=== PATIENT | male | born 1930 | race Caucasian/White ===

== ENCOUNTER 2018-10-11 12:15 | Inpatient (IN) ==
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
[2018-10-11] MEDS ORDERED: Ipratropium/Albuterol Neb 3 ML IH ONE (12:28)
[2018-10-11 12:57] LABS: Basophils % 0.3 %; Eosinophils # 0.1 K/mcL (0.0-0.6); Eosinophils % 0.8 %; Hematocrit 22.8 % (37.5-50.1); Hemoglobin 7.2 g/dL (12.9-16.9); Immature Granulocytes % 0.4 % (0-4); Lymphocytes # 1.9 K/mcL (0.6-4.6); Lymphocytes % 25.2 %; Mean Corpuscular HGB Conc 31.6 g/dL (31.6-35.5); Mean Corpuscular Hemoglobin 26.5 pg (28.0-33.3); Mean Corpuscular Volume 83.8 fL (83.0-100.0); Mean Platelet Volume 10.2 fL (9.4-12.4); Monocytes # 0.6 K/mcL (0.0-1.3); Monocytes % 7.8 %; Platelet Count 141 K/mcL (140-400); Red Blood Count 2.72 M/mcL (4.19-5.50); Red Cell Distribution Width 18.1 % (11.5-14.5); Segmented Neutrophils % 65.5 %
[2018-10-11 13:05] LABS: INR 1.4; Prothrombin Time 15.7 Seconds (9.4-12.1)
[2018-10-11 13:07] LABS: Activated Partial Thrombo Time 35.1 Seconds (26.0-36.0)
[2018-10-11 13:12] LABS: Alanine Aminotransferase 5 Units/L (7-52); Albumin 3.1 g/dL (3.5-5.7); Albumin/Globulin Ratio 1.1 (1.1-2.2); Alkaline Phosphatase 79 Units/L (34-104); Aspartate Amino Transferase 7 Units/L (13-39); BUN/Creatinine Ratio 16 (6-26); Bilirubin,Direct 0.1 mg/dL (0.0-0.2); Bilirubin,Indirect 0.5 mg/dL (0.0-1.2); Bilirubin,Total 0.6 mg/dL (0.3-1.0); Blood Urea Nitrogen 59 mg/dL (8-23); Calcium 8.6 mg/dL (8.6-10.3); Carbon Dioxide 19 mEq/L (23-29); Chloride 108 mEq/L (98-107); Ethanol < 10 mg/dL (Less than 10); Globulin 2.8 g/dL (2.4-3.5); Glucose 81 mg/dL (70-105); Osmolality,Calculated 300 (280-300); Sodium 137 mEq/L (136-145); Total Protein 5.9 g/dL (6.4-8.9); eGFR For Non-African Americans 15 (> 60)
[2018-10-11 13:15] LABS: Troponin I < 0.03 ng/mL (< 0.04)
[2018-10-11 13:56] LABS: Bilirubin,Urine Negative (Negative); Blood,Urine Negative (Negative); Clarity,Urine Clear (Clear); Color,Urine Yellow (Yellow); Glucose,Urine (UA) Normal (Normal); Ketones,Urine Negative (Negative); Leukocyte Esterase,Urine Small (Negative); Nitrite,Urine Negative (Negative); PH,Urine 5.5 pH Units (5.0-8.0); Protein,Urine Negative (Neg-Trace); Urobilinogen,Urine Normal (Normal)
[2018-10-11] MEDS ORDERED: 0.9 % Sodium Chloride 500 ML IVC ONE ×2 (13:58→14:09)
[2018-10-11 14:02] LABS: Bacteria,Urine Few per hpf (None-Few); Mucus,Urine Few (Few); Squamous Epithelial Cell,Urine Few per lpf (None-Few)
[2018-10-11] MEDS ORDERED: Naloxone 0.4 MG/ML INJ IVP PRN (14:09)
[2018-10-11] MEDS ORDERED: Acetaminophen 325 MG TABLET PO PRN (14:09)
[2018-10-11] MEDS ORDERED: Mag Hydrox/Al Hydrox/Simeth 30 ML UDC PO PRN (14:09)
[2018-10-11] MEDS ORDERED: Ondansetron 4 MG/2 ML VIAL IVP PRN (14:09)
[2018-10-11] MEDS ORDERED: 0.9 % Sodium Chloride 1,000 ML IVC SCH (14:09)
[2018-10-11] MEDS ORDERED: *HR* HYDROcodone/Acet 5/325 mg TABLET PO PRN (14:09)
[2018-10-11] MEDS ORDERED: MOM Conc 10 ML UD.LIQ PO PRN (14:09)
[2018-10-11 14:13] LABS: Amphetamine Screen,Urine Negative ng/mL (Cutoff=1000); Barbiturate Screen,Urine Negative ng/mL (Cutoff=200); Benzodiazepines Screen,Urine Negative ng/mL (Cutoff=200); Cannabinoid Screen,Urine Negative ng/mL (Cutoff = 50); Cocaine Screen,Urine Negative ng/mL (Cutoff= 300); Opiate Screen,Urine Negative ng/mL (Cutoff=300); Phencyclidine Screen,Urine Negative ng/mL (Cutoff=25)
[2018-10-11] MEDS ORDERED: 0.9 % Sodium Chloride 250 ML ONE (15:44)
[2018-10-11 17:18] LABS: % Iron Saturation 6 % (20-55); Iron 15 mcg/dL (65-175); Transferrin 180 mg/dL (203-362)
[2018-10-11 17:37] LABS: Ferritin 120 ng/mL (20-250)
[2018-10-11 17:40] LABS: Folate 12.1 ng/mL (3.0-16.0)
[2018-10-11] MEDS: levETIRAcetam 250 MG TABLET PO SCH (20:47)
[2018-10-11] MEDS: amLODIPine 5 MG TABLET PO SCH (20:51)
[2018-10-11] MEDS: Metoprolol XL (24 HR) Succ 25 MG TAB.ER.24H PO SCH (20:52)
[2018-10-11] MEDS: Ranolazine 500 MG TAB.ER.12H PO SCH (20:52)
[2018-10-11] MEDS: Melatonin 3 MG TABLET PO SCH (20:54)
[2018-10-11] MEDS: Insulin DETEMIR 100 UNIT/ML X5UNITS SQ SCH (20:56)
[2018-10-11 22:25] LABS: Basophils % 0.2 %; Eosinophils # 0.1 K/mcL (0.0-0.6); Hematocrit 25.6 % (37.5-50.1); Hemoglobin 8.2 g/dL (12.9-16.9); Immature Granulocytes % 0.6 % (0-4); Lymphocytes % 24.4 %; Mean Corpuscular Hemoglobin 26.8 pg (28.0-33.3); Mean Corpuscular Volume 83.7 fL (83.0-100.0); Mean Platelet Volume 11.3 fL (9.4-12.4); Monocytes # 0.6 K/mcL (0.0-1.3); Monocytes % 7.4 %; Neutrophils # 5.5 K/mcL (1.6-8.9); Platelet Count 101 K/mcL (140-400); Red Blood Count 3.06 M/mcL (4.19-5.50); Red Cell Distribution Width 17.3 % (11.5-14.5); Segmented Neutrophils % 66.4 %
[2018-10-12 05:44] LABS: Calcium 8.6 mg/dL (8.6-10.3); Potassium 4.7 mEq/L (3.5-5.1)
[2018-10-12] MEDS: levETIRAcetam 250 MG TABLET PO SCH ×2 (08:23→21:21)
[2018-10-12] MEDS: Finasteride 5 MG TABLET PO SCH (08:24)
[2018-10-12] MEDS: Metoprolol XL (24 HR) Succ 25 MG TAB.ER.24H PO SCH ×2 (08:24→21:20)
[2018-10-12] MEDS: Ranolazine 500 MG TAB.ER.12H PO SCH ×2 (08:24→21:20)
[2018-10-12] MEDS: amLODIPine 5 MG TABLET PO SCH ×2 (08:24→21:21)
--- NOTE | 2018-10-12 10:13 | Internal Med History&Physical ---
Date of Encounter: 10/12/18 Time of Encounter: 09:50 Assessment and Plan (1) Anemia Current visit: Yes Status: Acute A transfusion of 1 unit packed red blood cells was ordered through emergency room. Anemia testing shows iron 15, transferrin saturation 6%, transferrin 180, ferritin 120, B12 731, and folate 12.1. IV Iron dextran will be ordered since he has been on oral iron supplementation without improvement. Qualifiers: Anemia type: unspecified type Qualified Code(s): D64.9 - Anemia, unspe cified (2) Thrombocytopenia Current visit: Yes Status: Acute Platelet count today 101 K. Continue to monitor. (3) Subdural hematoma Current visit: Yes Status: Acute Head CT shows continual diminution of size. (4) Atrial fibrillation Current visit: Yes Status: Chronic Presumed chronic. EKG will be done. Qualifiers: Atrial fibrillation type: chronic Qualified Code(s): I48.2 - Chronic atrial fibrillation (5) Renal failure Current visit: Yes Status: Acute IV fluids were started in emergency room. Renal indices will be monitored. Qualifiers: Renal failure chronicity: acute on chronic Acute renal failure type: unspecified Chronic kidney disease stage: stage 4 (severe) Qualified Code(s): N17.9 - Acute kidney failure, unspecified; N18.4 - Chronic kidney disease, stage 4 (severe) (6) Dementia Current visit: Yes Status: Acute MMSE will be ordered. Qualifiers: Dementia type: unspecified type Dementia behavioral disturbance: without behavioral disturbance Qualified Code(s): F03.90 - Unspecified dementia without behavioral disturbance Internal Medicine - H&P: HPI Chief complaint: Worsening anemia, confusion, renal failure Admitted From: Emergency Dept Plans for Post Hospital Care: Transfer [facility] History of present illness: Mr. Cleary is a 88 year old male who was sent from a local SNF to emergency room after morning labs showed hemoglobin decrease to 7.0. Hemoglobin had been 8.0 on October 02 and 9.0 on September 23. Azotemia was minimally improved with creatinine at 3.90 slightly decreased from 4.50 on October 02 but significantly higher than 1.78 on September 23. Staff reported him to be more confused. He was admitted to [facility] floor for ongoing care needs. He is a poor historian and cannot provide additional history at this time. Past Med Surg Social Fam HX - Past Medical History Medical history: atrial fibrillation, CHF, CVA, diabetes, hypertension, myocardial infarction, renal disease, seizures Additional medical history: subdural hematoma Psychiatric history: no psych history - Past Surgical History Surgical History: appendectomy, pacemaker Additional surgical history: brain surgery for subdural hematoma - Social History Smoking Status: Never smoker Smokeless Tobacco Status: No Alcohol use: none Drug use: none Internal Medicine - H&P: Meds Acetaminophen [Acetaminophen ER] 650 mg PO Q8H PRN 09/28/18 [History] Ascorbate Calcium [Calcium Ascorbate] 500 mg PO QAM 09/28/18 [History] Bisacodyl [Gentle Laxative] 10 mg RC PRN PRN 09/28/18 [History] Cyanocobalamin (Vitamin B-12) [Vitamin B-12] 1,000 mcg PO HS 09/28/18 [History] Ferrous Sulfate [Iron] 325 mg PO QAM 09/28/18 [History] Finasteride [Proscar] 5 mg PO DAILY 09/28/18 [History] Insulin Glargine,Hum.rec.anlog [Lantus Solostar] 10 unit SQ HS 09/28/18 [History] Lactobacillus Acidophilus [Acidophilus] 1 each PO BID 09/28/18 [History] LevETIRAcetam [Keppra] 500 mg PO BID 09/28/18 [History] Magnesium Hydroxide [Milk of Magnesia] 400 mg PO PRN PRN 09/28/18 [History] Melatonin 5 mg PO HS 09/28/18 [History] Metoprolol Succinate [Kapspargo Sprinkle] 12.5 mg PO BID 09/28/18 [History] Ranolazine [Ranexa] 500 mg PO BID 09/28/18 [History] Sennosides/Docusate Sodium [Senna-S Laxative Tablet] 1 each PO BID 09/28/18 [History] Tamsulosin [Flomax] 0.4 mg PO DAILY 09/28/18 [History] amLODIPine [Norvasc] 5 mg PO BID 09/28/18 [History] Bumetanide [Bumex] 0.5 mg PO 10/11/18 [History] Allergy/AdvReac Type Severity Reaction Status Date / Time No Known Allergies Allergy Verified 10/11/18 12:18 All Systems PM: A 10-system review of systems was performed and is negative for pertinent findings except as documented above in the HPI. Review of systems: Review of systems is obtained from available records. Gen.: He states his usual adult weight is 184. Cardiovascular: He has history of atrial fibrillation with slow ventricular response had a pacemaker placed over 20 years ago. He denies hypertension. He has history of heart failure and AR but the patient cannot recall details. He has denied DVT or pulmonary embolus. Respiratory: He is essentially a lifelong nonsmoker and denies chronic lung disease GI: Denies disorders of his liver gallbladder or exocrine pancreas : He has presumed BPH and is on Flomax and Proscar. He has had azotemia present on all labs since March 2016 with acute worsening as per history of present illness. There are no other known kidney bladder prostate disorders. Neurologic: He had a fall July 2018 resulting in subdural hematoma. He underwent craniotomy decompression at a [facility]. He developed seizures and was placed on Keppra. He has been at a local SNF since discharge. Endocrine: He has diagnoses of DM 2. Hemoglobin A1c was 7.4% on August 2018. He denies thyroid disease or hyperlipidemia Hematology/oncology: He reports skin cancer but denies internal malignancies. He has had anemia and has been on B12 and ferrous sulfate with ascorbic acid at the SNF. Psychiatric: He denies anxiety depression or other mental health diagnosis Musk skeletal: He denies arthritis gout or other bone joint or muscle disorders. - Constitutional Vitals: Temp Pulse Resp BP Pulse Ox 97.9 F 72 20 138/65 94 10/12/18 06:15 10/12/18 06:15 10/12/18 06:15 10/12/18 06:15 10/12/18 06:15 Exam: Gen.: He is a well-developed well-nourished male sitting comfortably in a chair at bedside at present time and appears in no acute distress HEENT: Head is atraumatic and normocephalic. Eyes: EOMI. There is no scleral icterus. Mouth: Mucosa is moist. Neck: Supple and nontender. There is no thyromegaly or adenopathy noted. Heart: Regular (pacer) without murmurs gallops or ectopics Lungs: No wheezes or crackles are heard. Abdomen: Soft and nontender. No masses or guarding are noted. Exam is limited because he is in the seated position. Extremities: There is no cyanosis. He has 1+ edema of the dorsum of feet and lower legs bilaterally. Dorsalis pedis and posttibial pulses are not palpable. Neurologic: Mental status: He is talkative and a fair historian. He does not remember many details of his history. Cranial nerves: Smile is symmetric. Forehead wrinkles bilaterally. Tongue protrudes midline. EOMI. Motor: There is no pronator drift. Cerebellar: Finger to nose is intact bilaterally. Skin: Warm and dry Internal Med - H&P Results - Labs CBC & Chem 7: 10/11/18 22:09 10/12/18 04:28 Labs: Short CBC 10/11/18 10/11/18 Range/Units 12:50 22:09 WBC 7.7 8.2 (4.3-11.1) K/mcL Hgb 7.2 L 8.2 L (12.9-16.9) g/dL Hct 22.8 L 25.6 L (37.5-50.1) % Plt Count 141 D 101 L (140-400) K/mcL Neutrophils # 5.0 5.5 (1.6-8.9) K/mcL BMP 10/11/18 10/12/18 12:50 04:28 Sodium 137 137 Potassium 5.0 4.7 Chloride 108 H 109 H Carbon Dioxide 19 L 19 L BUN 59 H 57 H Creatinine 3.79 H 3.67 H Glucose 81 84 Calcium 8.6 8.6 Cardiac Enzymes 10/11/18 Range/Units 12:50 Troponin I < 0.03 (< 0.04) ng/mL Liver Function 10/11/18 Range/Units 12:50 Total Bilirubin 0.6 (0.3-1.0) mg/dL Direct Bilirubin 0.1 (0.0-0.2) mg/dL AST 7 L (13-39) Units/L ALT 5 L (7-52) Units/L Alkaline Phosphatase 79 (34-104) Units/L Albumin 3.1 L (3.5-5.7) g/dL Urine 10/11/18 Range/Units 13:50 Urine Color Yellow (Yellow) Urine Clarity Clear (Clear) Urine pH 5.5 (5.0-8.0) pH Units Ur Specific Blairs 1.010 (1.010-1.025) Urine Protein Negative (Neg-Trace) mg/dL Urine Glucose (UA) Normal (Normal) mg/dL - Impressions ITS Impressions Chest X-Ray 10/11/18 12:26 IMPRESSION: Pulmonary vascular congestion and small left pleural effusion. Indeterminate 1.5 cm nodular density projecting over the anterior aspect of the right 2nd rib. It is uncertain if this represents a pulmonary nodule or lesion within the right 2nd rib. Consider CT of the chest for further evaluation. D/ / 10/11/2018 13:10:01 Gavino Aguilar MD / Danika Cm Interpreting Provider: Gavino Aguilar MD Head CT 10/11/18 12:26 IMPRESSION: 1. No acute intracranial hemorrhage or acute transcortical infarct. 2. Continued evolution of a thin right frontal subdural hematoma now measuring between 5 and 6 mm, previously measuring up to 8 mm on the prior study from 09/28/2018. Low-density within the subdural collection is most consistent with subacute to chronic blood products. 3. Redemonstration of mild to moderate white matter hypoattenuation, likely the sequela of chronic small vessel ischemia. If there is persistent clinical concern for acute ischemia, repeat noncontrast head CT in 6 hours would be the next best imaging modality given that the patient has a pacemaker and likely cannot undergo MRI imaging. D/ / Aki Guerrero / Aki Guerrero Interpreting Provider: Aki Guerrero
--- NOTE | 2018-10-12 15:35 | Electrocardiograph Report ---
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
[2018-10-12] MEDS ORDERED: IRON DEXTRAN COMPLEX IVPB ONE (16:30)
[2018-10-12] MEDS ORDERED: SODIUM CHLORIDE 0.9% IVPB ONE (16:30)
[2018-10-12] MEDS: Melatonin 3 MG TABLET PO SCH (21:21)
[2018-10-12] MEDS: Insulin DETEMIR 100 UNIT/ML X5UNITS SQ SCH (21:21)
[2018-10-13 05:40] LABS: Basophils % 0.2 %; Eosinophils # 0.1 K/mcL (0.0-0.6); Hematocrit 26.9 % (37.5-50.1); Hemoglobin 8.6 g/dL (12.9-16.9); Immature Granulocytes % 0.6 % (0-4); Lymphocytes # 1.8 K/mcL (0.6-4.6); Mean Corpuscular Hemoglobin 27.2 pg (28.0-33.3); Mean Corpuscular Volume 85.1 fL (83.0-100.0); Mean Platelet Volume 10.2 fL (9.4-12.4); Monocytes # 0.7 K/mcL (0.0-1.3); Monocytes % 7.8 %; Platelet Count 111 K/mcL (140-400); Red Blood Count 3.16 M/mcL (4.19-5.50); Red Cell Distribution Width 17.1 % (11.5-14.5); Segmented Neutrophils % 69.4 %
[2018-10-13 08:51] VITALS: BP 130/71
[2018-10-13] MEDS: Finasteride 5 MG TABLET PO SCH (08:51)
[2018-10-13] MEDS: levETIRAcetam 250 MG TABLET PO SCH (08:52)
[2018-10-13] MEDS: amLODIPine 5 MG TABLET PO SCH (08:52)
[2018-10-13] MEDS: Ranolazine 500 MG TAB.ER.12H PO SCH (08:52)
[2018-10-13] MEDS: Metoprolol XL (24 HR) Succ 25 MG TAB.ER.24H PO SCH (08:52)
--- NOTE | 2018-10-13 10:24 | Discharge Summary ---
Orders not resulted at time of discharge: Pending orders 10/11/18 12:50 MMA (VIT B12 STATUS) Routine 10/12/18 15:03 ECG 12 lead ECG [ECG] Routine Date of Encounter: 10/13/18 Time of Encounter: 10:16 - Discharge Diagnosis (1) Anemia Priority: Primary Status: Acute Qualifiers: Anemia type: unspecified type Qualified Code(s): D64.9 - Anemia, unspecified (2) Thrombocytopenia Priority: Secondary Status: Acute (3) Subdural hematoma Priority: Secondary Status: Chronic (4) Atrial fibrillation Priority: Secondary Status: Chronic Qualifiers: Atrial fibrillation type: chronic Qualified Code(s): I48.2 - Chronic atrial fibrillation (5) Renal failure Priority: Secondary Status: Acute Qualifiers: Renal failure chronicity: acute on chronic Acute renal failure type: unspecified Chronic kidney disease stage: stage 4 (severe) Qualified Code(s): N17.9 - Acute kidney failure, unspecified; N18.4 - Chronic kidney disease, stage 4 (severe) (6) Dementia Priority: Secondary Status: Chronic Qualifiers: Dementia type: unspecified type Dementia behavioral disturbance: without behavioral disturbance Qualified Code(s): F03.90 - Unspecified dementia without behavioral disturbance Hospital course: Mr. Cleary is a 88 year old male who was sent from a local SNF to emergency room after morning labs showed hemoglobin decrease to 7.0. Hemoglobin had been 8.0 on October 02 and 9.0 on September 23. Azotemia was minimally improved with creatinine at 3.90 slightly decreased from 4.50 on October 02 but significantly higher than 1.78 on September 23. Staff reported him to be more confused. He was admitted to [facility] floor for ongoing care needs. Initial orders written by the emergency room physician. I saw him on October 12 performed a history and physical. He was given 1 unit packed red blood cells. Iron dextran was ordered. Hemoglobin improved to 8.6 by day of discharge. Platelet count increased to 111 K by day of discharge. There were no new problems otherwise and on October 13 he was stable for discharge back to [facility] where he will follow with me. - Time Spent with Patient Total time spent providing and/or coordinating discharge services: - Discharge Medications Prescriptions: Continue Tamsulosin [Flomax] 0.4 mg PO DAILY Ranolazine [Ranexa] 500 mg PO BID Melatonin 5 mg PO HS Sennosides/Docusate Sodium [Senna-S Laxative Tablet] 1 each PO BID Metoprolol Succinate [Kapspargo Sprinkle] 12.5 mg PO BID Magnesium Hydroxide [Milk of Magnesia] 400 mg PO PRN PRN PRN Reason: Constipation Insulin Glargine,Hum.rec.anlog [Lantus Solostar] 10 unit SQ HS Finasteride [Proscar] 5 mg PO DAILY amLODIPine [Norvasc] 5 mg PO BID Acetaminophen [Acetaminophen ER] 650 mg PO Q8H PRN PRN Reason: Pain Bisacodyl [Gentle Laxative] 10 mg RC PRN PRN PRN Reason: Constipation Ascorbate Calcium [Calcium Ascorbate] 500 mg PO QAM LevETIRAcetam [Keppra] 500 mg PO BID Ferrous Sulfate [Iron] 325 mg PO QAM Cyanocobalamin (Vitamin B-12) [Vitamin B-12] 1,000 mcg PO HS Bumetanide [Bumex] 0.5 mg PO Discontinued Lactobacillus Acidophilus [Acidophilus] 1 each PO BID Home Medications: Acetaminophen [Acetaminophen ER] 650 mg PO Q8H PRN 09/28/18 [History] Ascorbate Calcium [Calcium Ascorbate] 500 mg PO QAM 09/28/18 [History] Bisacodyl [Gentle Laxative] 10 mg RC PRN PRN 09/28/18 [History] Cyanocobalamin (Vitamin B-12) [Vitamin B-12] 1,000 mcg PO HS 09/28/18 [History] Ferrous Sulfate [Iron] 325 mg PO QAM 09/28/18 [History] Finasteride [Proscar] 5 mg PO DAILY 09/28/18 [History] Insulin Glargine,Hum.rec.anlog [Lantus Solostar] 10 unit SQ HS 09/28/18 [History] LevETIRAcetam [Keppra] 500 mg PO BID 09/28/18 [History] Magnesium Hydroxide [Milk of Magnesia] 400 mg PO PRN PRN 09/28/18 [History] Melatonin 5 mg PO HS 09/28/18 [History] Metoprolol Succinate [Kapspargo Sprinkle] 12.5 mg PO BID 09/28/18 [History] Ranolazine [Ranexa] 500 mg PO BID 09/28/18 [History] Sennosides/Docusate Sodium [Senna-S Laxative Tablet] 1 each PO BID 09/28/18 [History] Tamsulosin [Flomax] 0.4 mg PO DAILY 09/28/18 [History] amLODIPine [Norvasc] 5 mg PO BID 09/28/18 [History] Bumetanide [Bumex] 0.5 mg PO 10/11/18 [History] Allergies/Adverse Reactions: Allergy/AdvReac Type Severity Reaction Status Date / Time No Known Allergies Allergy Verified 10/11/18 12:18 Date of admission: 10/12/18 14:29 Primary care physician: Curtis Dhaliwal MD - Constitutional Vitals: Temp Pulse Resp BP Pulse Ox 98.2 F 70 16 130/71 94 10/13/18 06:26 10/13/18 08:50 10/13/18 06:26 10/13/18 08:50 10/13/18 08:50 - Patient Status Disposition: Transfer SNF Condition: Fair - Discharge Instructions Follow Up With: Curtis Dhaliwal MD [Primary Care Provider] - 1 week - Diet and Activity Activity: resume usual activities as tolerated Diet: advance to your usual diet
--- NOTE | 2018-10-13 10:29 | Physician Discharge Referral ---
ExtendedCare Referral Info Transfer To: [facility] Provider in Charge: Isra Provider in Charge after Transfer: PCP (Isra) - Diagnosis (1) Anemia Priority: Primary Status: Acute (2) Thrombocytopenia Priority: Secondary Status: Acute (3) Subdural hematoma Priority: Secondary Status: Chronic (4) Atrial fibrillation Priority: Secondary Status: Chronic (5) Renal failure Priority: Secondary Status: Acute (6) Dementia Priority: Secondary Status: Chronic Prognosis: Fair Aware of Diagnosis: Family Aware of Prognosis: Family - Transfer Medications Home Medications: Acetaminophen [Acetaminophen ER] 650 mg PO Q8H PRN 09/28/18 [History] Ascorbate Calcium [Calcium Ascorbate] 500 mg PO QAM 09/28/18 [History] Bisacodyl [Gentle Laxative] 10 mg RC PRN PRN 09/28/18 [History] Cyanocobalamin (Vitamin B-12) [Vitamin B-12] 1,000 mcg PO HS 09/28/18 [History] Ferrous Sulfate [Iron] 325 mg PO QAM 09/28/18 [History] Finasteride [Proscar] 5 mg PO DAILY 09/28/18 [History] Insulin Glargine,Hum.rec.anlog [Lantus Solostar] 10 unit SQ HS 09/28/18 [History] LevETIRAcetam [Keppra] 500 mg PO BID 09/28/18 [History] Magnesium Hydroxide [Milk of Magnesia] 400 mg PO PRN PRN 09/28/18 [History] Melatonin 5 mg PO HS 09/28/18 [History] Metoprolol Succinate [Kapspargo Sprinkle] 12.5 mg PO BID 09/28/18 [History] Ranolazine [Ranexa] 500 mg PO BID 09/28/18 [History] Sennosides/Docusate Sodium [Senna-S Laxative Tablet] 1 each PO BID 09/28/18 [History] Tamsulosin [Flomax] 0.4 mg PO DAILY 09/28/18 [History] amLODIPine [Norvasc] 5 mg PO BID 09/28/18 [History] Bumetanide [Bumex] 0.5 mg PO 10/11/18 [History] Allergies/Adverse Reactions: Allergy/AdvReac Type Severity Reaction Status Date / Time No Known Allergies Allergy Verified 10/11/18 12:18 - Respiratory Orders Smoking Cessation: Smoking cessation has been advised. For more information, call the [place] Tobacco Quit Line at 6-776-WXGA-NOW. - Lab Orders Lab Orders: Other (include drug levels w/frequency) (CBC with differential, BMP in 3 days) - Advance Directives Code Status: DNR-Arrest - Mobility Orders Ambulate (With assistance) - Rehabiliation Orders Rehab Potential: Fair CERTIFICATION: I certify that the transfer of the above named patient to an Extended Care Facility is necessary for the continuing treatment of the diagnosis listed. The above information is true and accurate reflection of patient's current condition. Confidential - Redisclosure prohibited without a patient's written consent.
--- NOTE | 2018-10-14 09:35 | Electrocardiograph Report ---
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
== END 2018-10-13 12:44 | DRG 812 ==
LOC: INPPIK 12:15 → EMEROOPIK 12:15 → INPPIK 14:35
PROVIDERS: ADMIT Internal Medicine; ATTEND Internal Medicine

== ENCOUNTER 2018-10-19 21:24 | Observation (INO) ==
[2018-10-19] MEDS ORDERED: cefTRIAXone 2,000 MG in Water for inj. (sterile) 20 ML 20 ML IVP ONE (21:28)
[2018-10-19] MEDS ORDERED: 0.9 % Sodium Chloride 250 ML IVC ONE (21:28)
--- NOTE | 2018-10-19 21:29 | Emergency Department Note ---
Disposition Clinical Impression: Hyperkalemia, Generalized weakness Renal failure Qualifiers: Renal failure chronicity: acute Acute renal failure type: unspecified Qualified Code(s): N17.9 - Acute kidney failure, unspecified Anemia Qualifiers: Anemia type: unspecified type Qualified Code(s): D64.9 - Anemia, unspecified Disposition: Admitted As Inpatient Condition: Fair General Adult HPI - General Chief complaint: ED General Medical Stated complaint: ABNORMAL LABS Time Seen by Provider: 10/19/18 21:26 Source: patient, EMS Mode of arrival: EMS Limitations: no limitations Nursing Notes Reviewed: Yes Vital Signs Reviewed: Yes - History of Present Illness HPI Narrative: Patient has had has decline in his status over the past couple weeks. His been number of evaluations and lab tests. Today he was shown to have a potassium of 6 a hemoglobin of 7 and acute renal failure. Patient also had urinary retention with UTI and over 2-1/2 L of urine decompressed upon placement of a Shook catheter. This has been communicated to Dr. Dhaliwal who desired the patient come to the emergency department to coordinate inpatient observation and stabilization. He is DNR CCA status but Dr. Dhaliwal believes that with transfusion, IV fluids and continued bladder decompression with a Shook catheter that his symptoms will improve and he can be observed at this facility. Patient has been brought in by EMS and they noted a respiratory rate of 16, blood pressure 128/53, heart rate of 69, temperature 98.6 and a saturation 95% on room air. He is alert and conversive on arrival and states he is "feeling alright". He denies any pain, chest pain, shortness of breath, nausea, vomiting or diarrhea. He believes he has "not eaten too well" and that is because "I did not like what they had". The patient has no other complaints. Before his pre sentation I did talk to Dr. Dhaliwal. He desired we obtain blood cultures, lactic acid repeated basic labs. He recommended we continue the Shook to gravity, administer one dose of Kayexalate, Rocephin for his urinary tract infection and saline at 50 mL per hour. He planned on observation with repeat laboratory in the morning. Onset (ago): week(s) - Related Data Home Medications Medication Instructions Recorded Confirmed Acetaminophen [Acetaminophen ER] 650 mg PO Q8H PRN 09/28/18 10/19/18 Ascorbate Calcium [Calcium 500 mg PO QAM 09/28/18 10/19/18 Ascorbate] Bisacodyl [Gentle Laxative] 10 mg RC PRN PRN 09/28/18 10/19/18 Cyanocobalamin (Vitamin B-12) 1,000 mcg PO HS 09/28/18 10/19/18 [Vitamin B-12] Ferrous Sulfate [Iron] 325 mg PO QAM 09/28/18 10/19/18 Finasteride [Proscar] 5 mg PO DAILY 09/28/18 10/19/18 Insulin Glargine,Hum.rec.anlog 10 unit SQ HS 09/28/18 10/19/18 [Lantus Solostar] LevETIRAcetam [Keppra] 500 mg PO BID 09/28/18 10/19/18 Magnesium Hydroxide [Milk of 400 mg PO PRN PRN 09/28/18 10/19/18 Magnesia] Melatonin 5 mg PO HS 09/28/18 10/19/18 Metoprolol Succinate [Kapspargo 12.5 mg PO BID 09/28/18 10/19/18 Sprinkle] Ranolazine [Ranexa] 500 mg PO BID 09/28/18 10/19/18 Sennosides/Docusate Sodium 1 each PO BID 09/28/18 10/19/18 [Senna-S Laxative Tablet] Tamsulosin [Flomax] 0.4 mg PO DAILY 09/28/18 10/19/18 amLODIPine [Norvasc] 5 mg PO BID 09/28/18 10/19/18 Bumetanide [Bumex] 0.5 mg PO DAILY 10/11/18 10/19/18 Allergies Allergy/AdvReac Type Severity Reaction Status Date / Time No Known Allergies Allergy Verified 10/19/18 21:28 All systems ED: reviewed and negative except as stated. Past Medical History - Past Medical History Attestation: Yes The following information was validated with the patient. Source: patient, old records reviewed, obtained from family, nursing notes reviewed Medical history: Reports: atrial fibrillation, CHF, CVA, diabetes, hypertension, myocardial infarction, renal disease, seizures Surgical history: Reports: appendectomy, pacemaker Psychiatric history: Reports: no psych history - Social History Smoking Status: Never smoker Smokeless Tobacco Status: No Alcohol use: Reports: none Drug use: Reports: none Physical Exam - General Limitations: age General appearance: alert, in no apparent distress - Head Head exam: atraumatic, normocephalic, normal inspection - Eye Eye exam: Present: normal appearance, PERRL, EOMI. Absent: conjunctival injection - ENT ENT exam: normal exam, normal oropharynx, mucous membranes moist - Neck Neck exam: Present: normal inspection, full ROM, trachea midline - Chest Chest inspection: Present: normal inspection, symmetric chest wall rise - Respiratory Respiratory exam: Present: normal lung sounds bilaterally. Absent: respiratory distress, wheezes, prolonged expiratory phase - Cardiovascular Cardiovascular exam: Present: regular rate, normal rhythm, normal heart sounds. Absent: tachycardia - Abdominal Exam Abdominal exam: Present: soft, Non-Tender, normal bowel sounds. Absent: tenderness, distention, guarding, rebound, rigidity - Extremities Exam Extremities exam: Present: normal inspection, full ROM, normal capillary refill. Absent: tenderness, pedal edema, calf tenderness - Expanded Lower Extremity Exam Neurovascular/Tendon exam: Present: normal capillary refill. Absent: motor deficit, sensory deficit, tendon deficit Gait: not tested/not observed - Neurological Exam Neurological exam: Present: alert, CN II-XII intact. Absent: motor sensory deficit - Psychiatric Psychiatric exam: Present: normal affect, normal mood. Absent: agitated, anxi ous - Skin Skin exam: Present: warm, dry, intact, normal color. Absent: rash, diaphoresis, pallor Course Course Narrative: Patient's laboratory has been reviewed and reviewed with Dr. Dhaliwal. With his low hemoglobin the plan was for type and screen. With return hemoglobin of 6.4 Dr. Dhaliwal did not desire type and cross and transfusion of 1 unit area potassium was down to 5.4 and remains of significant renal insufficiency. He will continue with careful IV fluids, observation and repeat laboratory in the morning. Rocephin has been started and continued. Discussed care with Dr. Dhaliwal before the patient's arrival as well as after return of testing. Verbal orders have been obtained for the patient's observation. Vital Signs Temperature 98.2 F 10/19/18 21:26 Pulse Rate 79 10/19/18 21:26 Respiratory Rate 24 10/19/18 21:26 Blood Pressure 147/90 10/19/18 21:26 O2 Sat by Pulse Oximetry 97 10/19/18 21:26 Temperature 97.7 F 10/20/18 00:20 Pulse Rate 73 10/20/18 00:20 Respiratory Rate 16 10/20/18 00:20 Blood Pressure 116/69 10/20/18 00:20 O2 Sat by Pulse Oximetry 95 10/20/18 00:27 Oxygen Delivery Oxygen Delivery Room Air Medical Decision Making - Medical Records Medical records reviewed: Yes I reviewed the patient's medical records. - Lab Data Lab results reviewed: Yes I reviewed the patient's lab results. Result diagrams: 10/19/18 21:45 10/19/18 21:45 Lab Results 10/19/18 10/19/18 10/19/18 Range/Units 21:45 21:45 21:45 WBC 7.1 (4.3-11.1) K/mcL RBC 2.32 L (4.19-5.50) M/mcL Hgb 6.4 L (12.9-16.9) g/dL Hct 20.5 L (37.5-50.1) % MCV 88.4 (83.0-100.0) fL MCH 27.6 L (28.0-33.3) pg MCHC 31.2 L (31.6-35.5) g/dL RDW 17.8 H (11.5-14.5) % Plt Count 181 (140-400) K/mcL MPV 9.9 (9.4-12.4) fL Immature Gran % 0.4 (0-4) % Seg Neutrophils % 70.9 % Lymphocytes % 20.2 % Monocytes % 8.3 % Eosinophils % 0.1 % Basophils % 0.1 % Neutrophils # 5.1 (1.6-8.9) K/mcL Lymphocytes # 1.4 (0.6-4.6) K/mcL Monocytes # 0.6 (0.0-1.3) K/mcL Eosinophils # 0.0 (0.0-0.6) K/mcL Basophils # 0.0 (0.0-0.2) K/mcL Sodium 134 L (136-145) mEq/L Potassium 5.4 H (3.5-5.1) mEq/L Chloride 105 (98-107) mEq/L Carbon Dioxide 20 L (23-29) mEq/L BUN 54 H (8-23) mg/dL Creatinine 3.13 H (0.70-1.30) mg/dL Est GFR ( Amer) 23 L (> 60) Est GFR (Non-Af Amer) 19 L (> 60) BUN/Creatinine Ratio 17 (6-26) Glucose 265 H (70-105) mg/dL Calculated Osmolality 302 H (280-300) Lactic Acid 1.9 (0.5-2.2) mmol/L Calcium 8.3 L (8.6-10.3) mg/dL Blood Type Antibody Screen Crossmatch 10/19/18 Range/Units 21:45 WBC (4.3-11.1) K/mcL RBC (4.19-5.50) M/mcL Hgb (12.9-16.9) g/dL Hct (37.5-50.1) % MCV (83.0-100.0) fL MCH (28.0-33.3) pg MCHC (31.6-35.5) g/dL RDW (11.5-14.5) % Plt Count (140-400) K/mcL MPV (9.4-12.4) fL Immature Gran % (0-4) % Seg Neutrophils % % Lymphocytes % % Monocytes % % Eosinophils % % Basophils % % Neutrophils # (1.6-8.9) K/mcL Lymphocytes # (0.6-4.6) K/mcL Monocytes # (0.0-1.3) K/mcL Eosinophils # (0.0-0.6) K/mcL Basophils # (0.0-0.2) K/mcL Sodium (136-145) mEq/L Potassium (3.5-5.1) mEq/L Chloride (98-107) mEq/L Carbon Dioxide (23-29) mEq/L BUN (8-23) mg/dL Creatinine (0.70-1.30) mg/dL Est GFR ( Amer) (> 60) Est GFR (Non-Af Amer) (> 60) BUN/Creatinine Ratio (6-26) Glucose (70-105) mg/dL Calculated Osmolality (280-300) Lactic Acid (0.5-2.2) mmol/L Calcium (8.6-10.3) mg/dL Blood Type A POSITIVE Antibody Screen NEGATIVE Crossmatch See Detail
[2018-10-19] MEDS ORDERED: 0.9 % Sodium Chloride 1,000 ML IVC SCH ×2 (21:30→23:53)
[2018-10-19 21:55] LABS: Basophils % 0.1 %; Eosinophils % 0.1 %; Hematocrit 20.5 % (37.5-50.1); Hemoglobin 6.4 g/dL (12.9-16.9); Immature Granulocytes % 0.4 % (0-4); Lymphocytes # 1.4 K/mcL (0.6-4.6); Lymphocytes % 20.2 %; Mean Corpuscular HGB Conc 31.2 g/dL (31.6-35.5); Mean Corpuscular Hemoglobin 27.6 pg (28.0-33.3); Mean Corpuscular Volume 88.4 fL (83.0-100.0); Mean Platelet Volume 9.9 fL (9.4-12.4); Monocytes # 0.6 K/mcL (0.0-1.3); Monocytes % 8.3 %; Neutrophils # 5.1 K/mcL (1.6-8.9); Platelet Count 181 K/mcL (140-400); Red Blood Count 2.32 M/mcL (4.19-5.50); Red Cell Distribution Width 17.8 % (11.5-14.5); Segmented Neutrophils % 70.9 %
[2018-10-19 22:14] LABS: Calcium 8.3 mg/dL (8.6-10.3); Potassium 5.4 mEq/L (3.5-5.1)
[2018-10-19] MEDS ORDERED: Ondansetron 4 MG/2 ML VIAL IVP PRN (23:53)
[2018-10-19] MEDS ORDERED: Bisacodyl 10 MG RECTAL SUPPOSITORY RC PRN (23:53)
[2018-10-19] MEDS ORDERED: D5% in Water 1,000 ML IVC PRN (23:53)
[2018-10-19] MEDS ORDERED: Mag Hydrox/Al Hydrox/Simeth 30 ML UDC PO PRN (23:53)
[2018-10-19] MEDS ORDERED: Dextrose Gel 15 GM/37.5 ML TUBE PO PRN ×2 (23:53)
[2018-10-19] MEDS ORDERED: Naloxone 0.4 MG/ML INJ IVP PRN (23:53)
[2018-10-19] MEDS ORDERED: *HR* Dextrose 50 % in Water (Vial) 50 ML VIAL IVP PRN (23:53)
[2018-10-19] MEDS ORDERED: MOM Conc 10 ML UD.LIQ PO PRN (23:53)
[2018-10-20] MEDS ORDERED: 0.9 % Sodium Chloride 250 ML ONE (00:17)
[2018-10-20 06:56] LABS: Basophils % 0.1 %; Eosinophils % 0.3 %; Hematocrit 25.9 % (37.5-50.1); Hemoglobin 8.2 g/dL (12.9-16.9); Immature Granulocytes % 0.9 % (0-4); Lymphocytes # 1.4 K/mcL (0.6-4.6); Lymphocytes % 18.5 %; Mean Corpuscular HGB Conc 31.7 g/dL (31.6-35.5); Mean Corpuscular Volume 88.4 fL (83.0-100.0); Mean Platelet Volume 10.9 fL (9.4-12.4); Monocytes # 0.6 K/mcL (0.0-1.3); Monocytes % 7.9 %; Neutrophils # 5.5 K/mcL (1.6-8.9); Platelet Count 147 K/mcL (140-400); Red Blood Count 2.93 M/mcL (4.19-5.50); Red Cell Distribution Width 17.2 % (11.5-14.5); Segmented Neutrophils % 72.3 %
[2018-10-20 07:20] LABS: Calcium 8.5 mg/dL (8.6-10.3); Potassium 4.3 mEq/L (3.5-5.1)
[2018-10-20] MEDS: Insulin LISPRO 300 UNITS/3 ML VIAL SQ SCH ×2 (07:38→12:11)
[2018-10-20] MEDS: Finasteride 5 MG TABLET PO SCH ×2 (08:38→09:00)
[2018-10-20] MEDS: Ranolazine 500 MG TAB.ER.12H PO SCH ×2 (08:38→09:00)
[2018-10-20] MEDS: Sennosides/Docusate Sodium TABLET PO SCH ×2 (08:38→09:00)
[2018-10-20] MEDS: amLODIPine 5 MG TABLET PO SCH ×2 (08:39→09:00)
[2018-10-20] MEDS: Bumetanide 1 MG TABLET PO SCH ×2 (08:39→08:59)
[2018-10-20] MEDS: levETIRAcetam 250 MG TABLET PO SCH ×2 (08:39→08:59)
[2018-10-20] MEDS ORDERED: MOM Conc 10 ML UD.LIQ PO PRN (09:00)
[2018-10-20 11:00] VITALS: BP 163/70
--- NOTE | 2018-10-20 11:29 | Internal Med History&Physical ---
Date of Encounter: 10/20/18 Time of Encounter: 11:00 Assessment and Plan (1) Anemia Current visit: Yes Status: Acute He was transfused 1 unit packed red blood cells and hemoglobin has improved to 8.2 today. Qualifiers: Anemia type: unspecified type Qualified Code(s): D64.9 - Anemia, unspecified (2) Urinary retention Current visit: Yes Status: Acute Shook catheter remains in place. (3) Hyperkalemia Current visit: Yes Status: Acute He was given Kayexalate in emergency room. Potassium level is decreased to 4.3. (4) Atrial fibrillation Current visit: No Status: Chronic He is not on anticoagulation or antiplatelet medication because of blood loss. Qualifiers: Atrial fibrillation type: chronic Qualified Code(s): I48.2 - Chronic atrial fibrillation (5) Dementia Current visit: No Status: Chronic Clinically advanced stage. Qualifiers: Dementia type: unspecified type Dementia behavioral disturbance: without behavioral disturbance Qualified Code(s): F03.90 - Unspecified dementia without behavioral disturbance (6) Renal failure Current visit: Yes Status: Acute Shook catheter remains in place. Renal function shows improvement with creatinine decreased to 2.79 today. Qualifiers: Renal failure chronicity: acute on chronic Acute renal failure type: unspecified Chronic kidney disease stage: stage 4 (severe) Qualified Code(s): N17.9 - Acute kidney failure, unspecified; N18.4 - Chronic kidney disease, stage 4 (severe) Internal Medicine - H&P: HPI Chief complaint: Urinary retention, anemia Admitted From: Emergency Dept Plans for Post Hospital Care: Transfer [facility] History of present illness: Mr. Cleary is a 88 year old male who was sent to emergency room for further evaluation after urinary retention, hyperkalemia, and worsening anemia were documented at the SNF. Shook catheter insertion at the alf resulted in approximately 2500 mL urine output. Hemoglobin had decreased to 6.4 on evaluation in emergency room. He was admitted to [facility] floor for ongoing care needs. He was hospitalized at [facility] approximately one week ago with anemia. He received iron dextran infusion and 1 unit packed red blood cells. Stool was documented heme positive 2 at the alf. EGD and colonoscopy were done several months ago to [facility]. No intervention was done. There is no known disorders of his liver gallbladder or exocrine pancreas. Past Med Surg Social Fam HX - Past Medical History Medical history: atrial fibrillation, CHF, CVA, diabetes, hypertension, myocardial infarction, renal disease, seizures Additional medical history: subdural hematoma, STAGE 4 KIDNEY DZ, TYPE 2 DM, ANEMIA, BEHAVIORAL ISSUES, PASSED HX OF BLOOD TRANSFUSIONS. Psychiatric history: no psych history - Past Surgical History Surgical History: appendectomy, pacemaker Additional surgical history: brain surgery for subdural hematoma, PACEMAKER, - Social History Smoking Status: Never smoker Smokeless Tobacco Status: No Alcohol use: none Drug use: none Internal Medicine - H&P: Meds Acetaminophen [Acetaminophen ER] 650 mg PO Q8H PRN 09/28/18 [History] Ascorbate Calcium [Calcium Ascorbate] 500 mg PO QAM 09/28/18 [History] Bisacodyl [Gentle Laxative] 10 mg RC PRN PRN 09/28/18 [History] Cyanocobalamin (Vitamin B-12) [Vitamin B-12] 1,000 mcg PO HS 09/28/18 [History] Ferrous Sulfate [Iron] 325 mg PO QAM 09/28/18 [History] Finasteride [Proscar] 5 mg PO DAILY 09/28/18 [History] Insulin Glargine,Hum.rec.anlog [Lantus Solostar] 10 unit SQ HS 09/28/18 [History] LevETIRAcetam [Keppra] 500 mg PO BID 09/28/18 [History] Magnesium Hydroxide [Milk of Magnesia] 400 mg PO PRN PRN 09/28/18 [History] Melatonin 5 mg PO HS 09/28/18 [History] Metoprolol Succinate [Kapspargo Sprinkle] 12.5 mg PO BID 09/28/18 [History] Ranolazine [Ranexa] 500 mg PO BID 09/28/18 [History] Sennosides/Docusate Sodium [Senna-S Laxative Tablet] 1 each PO BID 09/28/18 [History] Tamsulosin [Flomax] 0.4 mg PO DAILY 09/28/18 [History] amLODIPine [Norvasc] 5 mg PO BID 09/28/18 [History] Bumetanide [Bumex] 0.5 mg PO DAILY 10/11/18 [History] Allergy/AdvReac Type Severity Reaction Status Date / Time No Known Allergies Allergy Verified 10/19/18 21:28 All Systems PM: A 10-system review of systems was performed and is negative for pertinent findings except as documented above in the HPI. Review of systems: Review of systems from his recent [facility] hospitalization were reviewed and revised as below. Gen.: He states his usual adult weight is 184. Cardiovascular: He has history of atrial fibrillation with slow ventricular response had a pacemaker placed over 20 years ago. He denies hypertension. He has history of heart failure and [place] but the patient cannot recall details. He has denied DVT or pulmonary embolus. Respiratory: He is essentially a lifelong nonsmoker and denies chronic lung disease GI: As per history of present illness : He has presumed BPH and is on Flomax and Proscar. He has had azotemia present on all labs since March 2016 with acute worsening in the past few weeks. He had urinary retention requiring Shook catheter insertion yesterday as per history of present illness. Neurologic: He had a fall July 2018 resulting in subdural hematoma. He underwent craniotomy decompression at a [facility]. He developed seizur es and was placed on Keppra. He has been at a local SNF since discharge. Endocrine: He has diagnoses of DM 2. Hemoglobin A1c was 7.4% on August 2018. He denies thyroid disease or hyperlipidemia Hematology/oncology: He reports skin cancer but denies internal malignancies. He has had anemia and has been on B12 and ferrous sulfate with ascorbic acid at the SNF. Psychiatric: He denies anxiety depression or other mental health diagnosis Musk skeletal: He denies arthritis gout or other bone joint or muscle disorders. - Constitutional Vitals: Temp Pulse Resp BP Pulse Ox 98.4 F 70 16 163/70 96 10/20/18 10:51 10/20/18 10:51 10/20/18 10:51 10/20/18 10:51 10/20/18 10:51 Exam: Gen.: He is a well-developed well-nourished male resting comfortably in bed who appears in no acute distress. He denies pain or dyspnea. HEENT: Head is atraumatic and normocephalic. Eyes: EOMI. There is no scleral icterus. Mouth: Mucosa is moist. Neck: Supple and nontender. There is no thyromegaly or adenopathy. Heart: Regular (pacer) without murmurs gallops or ectopics. Lungs: No wheezing or crackles are heard. He has egophony in the posterior left base. Abdomen: Soft and nontender. No masses or guarding are noted. Extremities: He has 1-2+ edema of the dorsum of feet and lower legs bilaterally. Dorsalis pedis and posterior tibial pulses are nonpalpable. 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 Neurologic: Mental status: He is able to answer questions but is a fair to poor historian. He knows his age but not his location or length of stay. Cranial nerves: Smile is symmetric. Forehead wrinkles bilaterally. Tongue protrudes midline. EOMI. Motor: There is no pronator drift. Cerebellar: Finger to nose is intact bilaterally. Skin: Warm and dry Internal Med - H&P Results - Labs CBC & Chem 7: 10/20/18 06:08 10/20/18 06:08 Labs: Short CBC 10/19/18 10/20/18 Range/Units 21:45 06:08 WBC 7.1 7.6 (4.3-11.1) K/mcL Hgb 6.4 L 8.2 L D (12.9-16.9) g/dL Hct 20.5 L 25.9 L (37.5-50.1) % Plt Count 181 147 (140-400) K/mcL Neutrophils # 5.1 5.5 (1.6-8.9) K/mcL BMP 10/19/18 10/20/18 21:45 06:08 Sodium 134 L 138 Potassium 5.4 H 4.3 Chloride 105 108 H Carbon Dioxide 20 L 21 L BUN 54 H 48 H Creatinine 3.13 H 2.79 H Glucose 265 H 115 H Calcium 8.3 L 8.5 L
--- NOTE | 2018-10-20 11:57 | Discharge Summary ---
Orders not resulted at time of discharge: Pending orders 10/19/18 21:56 Culture,Blood [BC] Stat Date of Encounter: 10/20/18 Time of Encounter: 11:00 - Discharge Diagnosis (1) Anemia Priority: Primary Status: Acute Qualifiers: Anemia type: unspecified type Qualified Code(s): D64.9 - Anemia, unspecified (2) Urinary retention Priority: Secondary Status: Acute (3) Hyperkalemia Priority: Secondary Status: Resolved (4) Atrial fibrillation Priority: Secondary Status: Chronic Qualifiers: Atrial fibrillation type: chronic Qualified Code(s): I48.2 - Chronic atrial fibrillation (5) Dementia Priority: Secondary Status: Chronic Qualifiers: Dementia type: unspecified type Dementia behavioral disturbance: without behavioral disturbance Qualified Code(s): F03.90 - Unspecified dementia without behavioral disturbance (6) Renal failure Priority: Secondary Status: Acute Qualifiers: Renal failure chronicity: acute on chronic Acute renal failure type: unspecified Chronic kidney disease stage: stage 4 (severe) Qualified Code(s): N17.9 - Acute kidney failure, unspecified; N18.4 - Chronic kidney disease, stage 4 (severe) Hospital course: Mr. Cleary is a 88 year old male who was sent to emergency room for further evaluation after urinary retention, hyperkalemia, and worsening anemia were documented at the SNF. Shook catheter insertion at the skilled nursing resulted in approximately 2500 mL urine output. Hemoglobin had decreased to 6.4 on evaluation in emergency room. He was admitted to [facility] for ongoing care needs. Initial orders were written by the emergency room physician. I saw him on October 20 and performed a history physical and discharge. He received one unit packed red blood cells transfusion. Hemoglobin improved to 8.2 by the following day. I had a long discussion with his family about transferring him for additional aggressive intervention with EGD +/- colonoscopy. They elected to pursue a nonaggressive plan of care. 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 The Shook catheter will remain in place. Proscar will be continued. Flomax will be discontinued and Cardura started for BPH and blood pressure control. Amlodipine will be discontinued. No further labs will be drawn at the skilled nursing. He will not return to the hospital. He will follow with me at the SNF. - Time Spent with Patient Total time spent providing and/or coordinating discharge services: - Discharge Medications Prescriptions: New Ascorbic Acid [C-500] 500 mg PO DAILY 365 Days tablet Doxazosin Mesylate [Cardura] 2 mg PO HS 365 Days tablet MOM Conc [MILK OF MAGNESIA conc] 10 ml PO DAILY PRN [id number] PRN Reason: Constipation Continue Ranolazine [Ranexa] 500 mg PO BID Melatonin 5 mg PO HS Sennosides/Docusate Sodium [Senna-S Laxative Tablet] 1 each PO BID Metoprolol Succinate [Kapspargo Sprinkle] 12.5 mg PO BID Magnesium Hydroxide [Milk of Magnesia] 400 mg PO PRN PRN PRN Reason: Constipation Insulin Glargine,Hum.rec.anlog [Lantus Solostar] 10 unit SQ HS Finasteride [Proscar] 5 mg PO DAILY Acetaminophen [Acetaminophen ER] 650 mg PO Q8H PRN PRN Reason: Pain Bisacodyl [Gentle Laxative] 10 mg RC PRN PRN PRN Reason: Constipation LevETIRAcetam [Keppra] 500 mg PO BID Ferrous Sulfate [Iron] 325 mg PO QAM Cyanocobalamin (Vitamin B-12) [Vitamin B-12] 1,000 mcg PO HS Bumetanide [Bumex] 0.5 mg PO DAILY Discontinued Tamsulosin [Flomax] 0.4 mg PO DAILY amLODIPine [Norvasc] 5 mg PO BID Ascorbate Calcium [Calcium Ascorbate] 500 mg PO QAM Home Medications: Acetaminophen [Acetaminophen ER] 650 mg PO Q8H PRN 09/28/18 [History] Bisacodyl [Gentle Laxative] 10 mg RC PRN PRN 09/28/18 [History] Cyanocobalamin (Vitamin B-12) [Vitamin B-12] 1,000 mcg PO HS 09/28/18 [History] Ferrous Sulfate [Iron] 325 mg PO QAM 09/28/18 [History] Finasteride [Proscar] 5 mg PO DAILY 09/28/18 [History] Insulin Glargine,Hum.rec.anlog [Lantus Solostar] 10 unit SQ HS 09/28/18 [History] LevETIRAcetam [Keppra] 500 mg PO BID 09/28/18 [History] Magnesium Hydroxide [Milk of Magnesia] 400 mg PO PRN PRN 09/28/18 [History] Melatonin 5 mg PO HS 09/28/18 [History] Metoprolol Succinate [Kapspargo Sprinkle] 12.5 mg PO BID 09/28/18 [History] Ranolazine [Ranexa] 500 mg PO BID 09/28/18 [History] Sennosides/Docusate Sodium [Senna-S Laxative Tablet] 1 each PO BID 09/28/18 [History] Bumetanide [Bumex] 0.5 mg PO DAILY 10/11/18 [History] Ascorbic Acid [C-500] 500 mg PO DAILY 365 Days tablet 10/20/18 [Rx] Doxazosin Mesylate [Cardura] 2 mg PO HS 365 Days tablet 10/20/18 [Rx] MOM Conc [MILK OF MAGNESIA conc] 10 ml PO DAILY PRN ud.liq 10/20/18 [Rx] Allergies/Adverse Reactions: Allergy/AdvReac Type Severity Reaction Status Date / Time No Known Allergies Allergy Verified 10/19/18 21:28 Date of admission: 10/19/18 23:01 Primary care physician: Curtis Dhaliwal MD Consults: 10/19/18 23:58 Consult to Nutrition [CONS] Routine Comment: Consulting Provider: NUTRITION Reason for Dietary Consult: Other MST Score Consult to Outbound Sales Representative [CONS] Routine Reason for SW Consult: Curly lives at [facility] for rehab. - Constitutional Vitals: Temp Pulse Resp BP Pulse Ox 98.4 F 70 16 163/70 96 10/20/18 10:51 10/20/18 10:51 10/20/18 10:51 10/20/18 10:51 10/20/18 10:51 - Patient Status Disposition: Transfer SNF Condition: Fair - Discharge Instructions Follow Up With: Curtis Dhaliwal MD [Primary Care Provider] - 1 week - Diet and Activity Activity: resume usual activities as tolerated Diet: advance to your usual diet
[2018-10-20] MEDS ORDERED: cefTRIAXone 2,000 MG in 0.9 % Sodium Chloride Mini Bag 100 ML IVPB SCH (16:00)
[2018-10-20] MEDS ORDERED: Insulin DETEMIR 100 UNIT/ML X5UNITS SQ SCH (21:00)
[2018-10-20] MEDS ORDERED: Melatonin 3 MG TABLET PO SCH (21:00)
== END 2018-10-20 13:35 ==
LOC: INPPIK 21:24 → EMEROOPIK 21:24 → INPPIK 23:43
PROVIDERS: ADMIT Internal Medicine; ATTEND Internal Medicine